=== PATIENT | female | born 1985 | race Caucasian/White ===

== ENCOUNTER → 2024-01-29 | Outpatient (CLI) | payer OTHER, SELFPAY ==
[2024-01-29 17:51] LABS: Hematocrit 43.6 % (37-47); Hemoglobin 14.4 g/dL (12.0-15.0); Mean Corpuscular Hgb 30.6 pg (27.0-32.0); Mean Corpuscular Volume 92.8 fL (81-99); Mean Platelet Vol. 11.5 fl (6.2-12.0); Platelet Count 178 K/mm3 (150-450); RBC Distribution Width CV 13.3 % (11.6-14.6); White Blood Count 6.8 K/mm3 (4.4-11.0)
[2024-01-29 18:00] LABS: Erythrocyte Sedimentation Rate 3 mm/hr (0-30)
[2024-01-29 18:26] LABS: CRP < 2.90 mg/L (0.0-3.0); T4 Total, Thyroxin 8.2 ug/dL (4.8-13.9); Thyroid Stim Hormone (TSH) 2.86 uIU/mL (0.358-3.74)
[2024-01-31 15:08] LABS: Endomysial Antibody IgA Negative (Negative); Immunoglobulin A 211 mg/dL (87-352); t-Transglutaminase IgA <2 U/mL (0-3)
== END | disposition home or self-care (01) ==
PROVIDERS: Referring Provider Internal Medicine Gastroenterology; Visit Provider Internal Medicine Gastroenterology
DX: R19.7 Diarrhea, unspecified (principal)
CPT/HCPCS: 36415; 82784; 83516; 84436; 84443; 85027; 85652; 86140; 86255